=== PATIENT | male | born 1955 | race Caucasian/White ===

== ENCOUNTER 2019-06-01 10:28 | Inpatient (IN) ==
[2019-06-01] MEDS ORDERED: NS 1,000 ML IV ONE ×2 (11:26→13:33)
[2019-06-01 11:27] LABS: INR 0.99; PROTIME 13.2 Seconds (11.0-16.0)
[2019-06-01 11:28] LABS: PTT 25.3 Seconds (22.3-41.8)
[2019-06-01 11:32] LABS: AGAP 18; ALB/GLOB RATIO 1.6; ALBUMIN 4.5 g/dL (3.5-5.0); ALKALINE PHOSPHATASE 135 U/L (32-122); BUN 11 mg/dL (8-22); CALCIUM 9.8 mg/dL (8.8-10.2); CHLORIDE 98 mmol/L (98-107); CK PROFILE 81 U/L (24-204); COSMO 285; CREATININE 0.9 mg/dL (0.7-1.2); ESTIMATED GFR > 60; GLUCOSE 245 mg/dL (70-104); GOT 88 U/L (10-34); GPT 84 U/L (10-44); MAGNESIUM 1.4 mg/dL (1.5-2.7); POTASSIUM 4.4 mmol/L (3.5-5.1); SODIUM 139 mmol/L (136-145); TCO2 23 mmol/L (25-35); TOTAL BILIRUBIN 0.62 mg/dL (0.20-1.00); TOTAL PROTEIN 7.3 g/dL (6.3-8.3)
[2019-06-01] MEDS ORDERED: MORPHINE IV ONE (11:38)
[2019-06-01] MEDS ORDERED: ZOFRAN IV ONE (11:38)
--- NOTE | 2019-06-01 11:53 | Diag Imaging Result Doc PS360 ---
EXAM: CHEST-1 VIEW HISTORY: Sepsis protocol TECHNIQUE: Chest single view COMPARISON: 11/24/2014 FINDINGS: The lungs are well expanded. The heart is not enlarged. The vessels are mildly distended. There are no infiltrates. No effusion identified. IMPRESSION: Mild pulmonary edema. No pneumonia. Electronically signed by Maldonado Otoole 06/01/2019 11:51 AM
[2019-06-01 12:00] LABS: BASO# 0.05 X1000 (0.0-0.2); BASO% 0.3 % (0.0-0.8); EOS# 0.13 X1000 (0.0-0.7); EOS% 0.8 % (0.0-10.0); HEMATOCRIT 54.3 % (42.0-52.0); HEMOGLOBIN 18.5 g/dL (14.0-18.0); IMM GRAN# 0.06 X1000 (0.0-0.04); IMM GRAN% 0.4 % (0.0-0.5); LYMPH# 2.61 X1000 (1.2-3.4); LYMPH% 16.7 % (20.5-51.1); MCH 29.8 PG (27-31); MCHC 34.1 g/dL (33-37); MCV 87.6 FL (81-99); MONO# 1.15 X1000 (0.11-0.59); MONO% 7.3 % (1.7-9.3); MPV 11.6 FL (7.4-10.4); NEUT# 11.66 X1000 (1.4-6.5); NEUT% 74.5 % (42.2-75.2); PLT 227 X1000 (130-400); RDW 13.9 % (11.5-14.5); WBC 15.66 X1000 (4.8-10.8)
[2019-06-01 12:24] LABS: AMYLASE 54 U/L (20-200); LIPASE 429 U/L (13-60)
--- NOTE | 2019-06-01 13:14 | Diag Imaging Result Doc PS360 ---
EXAM: CT ABD/PELVIS W/IV CONT ONLY HISTORY: abd pain TECHNIQUE: CT abdomen and pelvis with intravenous contrast COMPARISON: 11/17/2012 FINDINGS: There are mild inflammatory changes about the pancreas. No pancreatic calcifications or pseudocyst. The gallbladder has been removed. Pronounced fatty infiltration of the liver. Normal spleen, adrenal glands, and right kidney. Tiny left renal stone. No hydronephrosis. Tiny scattered renal cysts. Prominent atherosclerosis. No aortic aneurysm. Normal appendix. No abscess. No bowel obstruction. The urinary bladder is only mildly distended. Normal prostate. IMPRESSION: 1.Acute pancreatitis 2.Prominent fatty infiltration of the liver 3.Cholecystectomy 4.Nonobstructing left renal stone. This exam was performed using automated exposure control, adjustment of mA or kV according to patient size, and/or use of iterative reconstruction technique. Electronically signed by Maldonado Otoole 06/01/2019 1:12 PM
[2019-06-01] MEDS ORDERED: MAGNESIUM SULFATE 2 GM/S.W.I. 2 GM/50 ML IVPB IV ONE (13:49)
--- NOTE | 2019-06-01 13:51 | PROVIDER DOCUMENTATION ---
This chart was entered by Amaya Schmitz Scribe, acting as scribe for Dominick Melgar CRNP. HPI-Abdominal Pain/GI Problem - General Chief Complaint: Abdominal Pain Stated Complaint: ABD PAIN X 3 DAYS Time Seen by Provider: 06/01/19 10:43 Source: patient, family Allergies/Adverse Reactions: Patient Allergies Allergy/AdvReac Type Severity Reaction Status Date / Time No Known Allergies Allergy Verified 06/01/19 11:02 Home Medications: Home Medication List Medication Instructions Recorded Confirmed Last Taken Type Home Meds Unobtainable 12/01/14 06/01/19 Unknown History - History of Present Illness-ABD Nature of Presenting Problems: 64 yom presents to the ed with c/o abdominal pain in mid epigastric area. pt has hx of pancreatitis and admits to drinking pint of burbon weekly. pt denies n/v/d and c/o only of pain. Abdominal Pain Onset Location: reports: epigastric Pain Radiation: reports: no radiation Quality of Pain: reports: cramping Severity in ED: reports: moderate Onset/Duration: reports: 2 days ago Timing: reports: still present, getting worse Activities at Onset: reports: light activity Exposure to sick contacts?: No Modifying Factors: improves with: nothing Associated Symptoms: denies: back/neck pain, diarrhea, fever/chills, headaches, nausea, shortness of breath, vomiting Last BM: last night Dark Stools Present?: reports: none noticed Rectal Bleeding: reports: none # of Diarrhea Episodes: 0 Rectal Pain: reports: none # of Vomiting Episodes: 0 Emesis Description: reports: none Bruising or Bleeding Gums?: No Similar Symptoms Previously?: Yes (hx of pancreatitis) Recently seen or treated by another doctor?: No Review of Systems - Adult - REVIEW OF SYSTEMS - ADULT Constitutional: denies: chills, fever Eyes: reports: no symptoms reported Ears, Nose, Mouth & Throat: reports: no symptoms reported Cardiovascular: denies: chest pain, palpitations Respiratory: denies: shortness of breath, wheezing Gastrointestinal: reports: see HPI, abdominal pain (mid epigastric). denies: d iarrhea, nausea, vomiting Genitourinary: reports: no symptoms reported Musculoskeletal: denies: back pain, neck pain Integumentary: reports: no symptoms reported Neurological: reports: no symptoms reported Psychiatric: reports: see HPI, alcohol/drug dependence (etoh) Endocrine: reports: no symptoms reported Hematologic/Lymphatic: reports: no symptoms reported Allergic/Immunologic: reports: no symptoms reported All Other Systems: Reviewed and Negative Past History - Adult - PAST MEDICAL HISTORY-ADULT Review of Records: reports: Old Records Reviewed, Nursing Assessment Review, Medications Reviewed, Social history reviewed & non-contributory. Major Childhood Illnesses: reports: denies history Cardiovascular: reports: CAD, HTN, hyperlipidemia, [place] Respiratory: reports: denies history Gastrointestinal: reports: cancer (liver), GERD, liver disease, pancreatitis Genitourinary: reports: denies history Musculoskeletal: reports: denies history Neurological: reports: Seizures/Epilepsy Psychiatric: reports: anxiety, bipolar, depression, suicide attempt Endocrine/Immune: reports: denies history Other Conditions: reports: denies history - PRIOR SURGERIES/PROCEDURES Surgical/Procedure History: reports: cardiac stent, tonsillectomy - IMMUNIZATION STATUS Childhood Immunizations: See Nurse Assessment Flu Vaccine: See Nurse Assessment - FAMILY HISTORY Family History: reviewed, not pertinent - SOCIAL HISTORY Smoking: cigarettes, greater than 1 pack/day Provider spent 3-5 mins advising pt. on dangers of tobacco.: Discussed manners to quit use, and f/u contacts for add'l counseling. Substance Use: alcohol Alcohol Use Frequency: once a week (pint of eliud weekly) Living Situation: family Physical Exam-General - PHYSICAL EXAM-ADULT Initial Vital Signs Reviewed: Yes (noted BP 199/101 RR 28 o@ 94%) - CONSTITUTIONAL General Appearance: alert, mild distress - EYES Eyes: PERRL/EOMI, pink conjunctivae - HEAD, EARS, NOSE, MOUTH & THROAT HENMT: moist mucous membranes - NECK Neck: non-tender, full range of motion, normal inspection - RESPIRATORY Respiratory: chest non-tender, lungs clear, normal breath sounds, increased rate (28) - CARDIOVASCULAR Cardiovascular: normal peripheral pulses, tachycardia (100) - GASTROINTESTINAL (ABDOMEN) Abdominal Exam: normal bowel sounds, soft, tenderness (mid epigastric) - LYMPHATIC Lymphatic: no adenopathy - MUSCULOSKELETAL Back Exam: normal inspection, no CVA tenderness, no vertebral tenderness Extremity: normal range of motion, non-tender, normal inspection, normal capillary refill, pelvis stable - SKIN Integumentary: normal color, normal turgor, warm/dry - NEUROLOGIC Neurologic: grossly normal - PSYCHIATRIC Psych/Mental Status: normal mood/affect, normal thought content, normal thought process, oriented x 3 Progress - PLAN OF CARE/RESULTS Progress/Plan/Lab Results: Vital Signs - 8 hr 06/01/19 11:00 Temperature 98.0 F Pulse Rate 100 H Respiratory Rate 28 H Blood Pressure 199/101 O2 Sat by Pulse Oximetry 94 L Laboratory Results - last 24 hr 06/01/19 06/01/19 06/01/19 10:52 10:52 10:52 PT 13.2 INR 0.99 PTT (Actin FS) 25.3 Sodium 139 Potassium 4.4 Chloride 98 Carbon Dioxide 23 L Anion Gap 18 BUN 11 Creatinine 0.9 Estimated GFR/1.73 m2 > 60 BUN/Creatinine Ratio 12 Glucose 245 H Calculated Osmolality 285 Calcium 9.8 Magnesium 1.4 L Total Bilirubin 0.62 AST 88 H ALT 84 H Alkaline Phosphatase 135 H Creatine Kinase 81 Troponin T Total Protein 7.3 Albumin 4.5 Globulin 2.8 Albumin/Globulin Ratio 1.6 Plasma Lactate 1.6 06/01/19 10:52 PT INR PTT (Actin FS) Sodium Potassium Chloride Carbon Dioxide Anion Gap BUN Creatinine Estimated GFR/1.73 m2 BUN/Creatinine Ratio Glucose Calculated Osmolality Calcium Magnesium Total Bilirubin AST ALT Alkaline Phosphatase Creatine Kinase Troponin T < 0.010 Total Protein Albumin Globulin Albumin/Globulin Ratio Plasma Lactate Orders Category Date Time Status Cardiac Monitoring DIRECTED Care 06/01/19 11:03 Active IV Insertion ORDERED Care 06/01/19 11:03 Active Notify MD of + Sepsis Screen NOW Care 06/01/19 11:03 Active Notify Physician As Ordered Care 06/01/19 11:03 Active CHEST-1 VIEW [RAD] Stat Exams 06/01/19 11:[address] ABD/PELVIS W/IV CONT ONLY [CT] Stat Exams 06/01/19 11:26 Ordered AMYLASE [CHEM] Stat Lab 06/01/19 10:52 Received BLOOD CULTURE [BLDCUL] Stat Lab 06/01/19 11:03 Uncollected CBC WITH DIFF [HEME] Stat Lab 06/01/19 10:52 Results CK PROFILE [SP CHEM] Stat Lab 06/01/19 10:52 Completed COMPREHENSIVE METABOLIC PANEL [CHEM] Stat Lab 06/01/19 10:52 Completed LACTATE, PLASMA [CHEM] Lab 06/01/19 14:15 Uncollected LACTATE, PLASMA [CHEM] Lab 06/01/19 17:15 Uncollected LACTATE, PLASMA [CHEM] Q3H Lab 06/01/19 10:52 Completed LIPASE [CHEM] Stat Lab 06/01/19 10:52 Received MAGNESIUM [CHEM] Stat Lab 06/01/19 10:52 Completed PROTIME WITH INR [COAG] Stat Lab 06/01/19 10:52 Completed PTT [COAG] Stat Lab 06/01/19 10:52 Completed TROPONIN T Stat Lab 06/01/19 10:52 Completed URINALYSIS W/POSS RFLX CULT [URINALYSIS] Stat Lab 06/01/19 11:03 Uncollected 0.9% Sodium Chloride Inj [Ns] 1,000 ml Med 06/01/19 11:26 Active IV 999 mls/hr Morphine Med 06/01/19 11:38 Discontinued 4 mg IV NOW ONE Ondansetron [Zofran] Med 06/01/19 11:38 Discontinued 4 mg IV NOW ONE Oxygen Device Stat Oth 06/01/19 11:03 Active Result Diagrams: 06/01/19 10:52 06/01/19 10:52 - XRAY 1 XRAY: Bilateral XRAY Study: Chest Impression: See EMR Report (EXAM: CHEST-1 VIEW HISTORY: Sepsis protocol TECHNIQUE: Chest single view COMPARISON: 11/24/2014 FINDINGS: The lungs are well expanded. The heart is not enlarged. The vessels are mildly distended. There are no infiltrates. No effusion identified. IMPRESSION: Mild pulmonary edema. No pneumonia. Electronically signed by Maldonado Otoole 06/01/2019 11:51 AM 06/01/19 1151 Interpreting Physician: Maldonado Otoole MD ictated Date/Time: 06/01/19 1150 cc: Dominick Melgar; Delvis Davison MD) - CT/MRI 1 CT Study: Abdomen, Pelvis Impression: See EMR Report (EXAM: CT ABD/PELVIS W/IV CONT ONLY HISTORY: abd pain TECHNIQUE: CT abdomen and pelvis with intravenous contrast COMPARISON: 11/17/2012 FINDINGS: There are mild inflammatory changes about the pancreas. No pancreatic calcifications or pseudocyst. The gallbladder has been removed. Pronounced fatty infiltration of the liver. Normal spleen, adrenal glands, and right kidney. Tiny left renal stone. No hydronephrosis. Tiny scattered renal cysts. Prominent atherosclerosis. No aortic aneurysm. Normal appendix. No abscess. No bowel obstruction. The urinary bladder is only mildly distended. Normal prostate. IMPRESSION: 1.Acute pancreatitis 2.Prominent fatty infiltration of the liver 3.Cholecystectomy 4.Nonobstructing left renal stone. This exam was performed using automated exposure control, adjustment of mA or kV according to patient size, and/or use of iterative reconstruction technique. Electronically signed by Maldonado Otoole 06/01/2019 1:12 PM 06/01/19 1312 Interpreting Physician: Maldonado Otoole MD Dictated Date/Time: 06/01/19 1309 cc: Dominick Melgar; Delvis Davison MD) - CONSULTS/PCP/HOSPITALIST Notification #1 *Consult/PCP/Hospitalist*: [facility]/Dr. Bishop Time Discussed: 13:50 Consult Disposition: Admit Departure - Departure Date of Disposition Decision: 06/01/19 Time of Disposition Decision: 13:37 DIAGNOSIS: Pancreatitis, acute Qualifiers: Pancreatitis type: unspecified pancreatitis type Acute pancreatitis complication: unspecified Qualified Code(s): K85.90 - Acute pancreatitis without necrosis or infection, unspecified Disposition: ADMITTED INPATIENT 09 Certified Medical Emergency: Emergent Condition: Stable Additional Freetext Instructions: ED Follow Up Instructions: You have been treated by a care provider in the Emergency Department. These instructions are being provided to you so you can have an understanding of how to care for yourself upon discharge. Upon discharge from the Emergency De partment, you are responsible for making arrangements for follow-up care by a physician of your choice. Take all prescribed medications as directed. Return to the Emergency Department immediately for any new or worsening symptoms. You may call the Physician Referral phone number at [phone] to obtain a list of Physicians who are taking new patients. ED Follow Up Instructions: You have been treated by a care provider in the Emergency Department. These instructions are being provided to you so you can have an understanding of how to care for yourself upon discharge. Upon discharge from the Emergency Department, you are responsible for making arrangements for follow-up care by a physician of your choice. Take all prescribed medications as directed. Return to the Emergency Department immediately for any new or worsening symptoms. You may call the Physician Referral phone number at [phone] to obtain a list of Physicians who are taking new patients. Referrals and Follow-Ups: Delvis Davison MD [Primary Care Provider] - - Critical Care Note This patient required my direct & personal management of CC.: No Attestation - Physician/ MAKENZIE Attestation Patient care was provided by Advanced Practice Provider:: Yes Advanced Practice Provider:: Dominick Melgar Advanced Practice Provider documentation review:: The Mid-level provider documentation, treatment plan and medical decision making was reviewed by the physician who agrees with all treatment and medical decision making by the MLP. The physician spent face to face time with patient:: No Advanced Practice Provider documentation review:: Supervising physician onsite and consulted in the evaluation and care of this patient. The physician did not have a face to face encounter with the patient. This chart was documented by the indicated scribe, (Amaya Schmitz Scribe) and accurately reflects the services I performed and decisions made by me, Dominick Melgar CRNP, as attested by the provider's signature.
[2019-06-01] MEDS ORDERED: SODIUM CHLORIDE 0.9% INJ SCH (14:57)
[2019-06-01] MEDS ORDERED: NEXIUM IV SCH (14:57)
--- NOTE | 2019-06-01 15:16 | HISTORY AND PHYSICAL ---
PRIMARY CARE PHYSICIAN: Dr. Delvis Davison. CHIEF COMPLAINT: Midepigastric abdominal pain for the past 2 to 3 days and he vomited x1 today. HISTORY OF PRESENTING ILLNESS: This is a 64-year-old male who presents to [facility] with complaints of midepigastric abdominal pain over the last 2 to 3 days that has progressively worsened. Vomited x1 today. Drinks 1/2 to 1 pint of liquor daily and has for some time. Has a history of pancreatitis in the past. His workup in the emergency room showed an AST of 88, ALT 84, alkaline phosphatase 135. Amylase was 54, lipase 429 with a plasma lactate of 1.6, magnesium 1.4. Hemoglobin was 18.5 with a hematocrit of 54.3. We did a CT of the abdomen and pelvis that showed an acute pancreatitis and a prominent fatty infiltration of the liver. So he will be admitted for further evaluation and treatment. He is noted to be very lethargic. Does moan with palpation to the midepigastric of his abdomen. Was given morphine 4 mg IV x1 in the emergency room, so he is lethargic at this time. is at bedside to help answer questions and review medical record. PAST MEDICAL HISTORY: Coronary artery disease, diabetes type 2, bipolar, pancreatitis, ETOH abuse, and hepatitis C. PAST SURGICAL HISTORY: Heart stent placement, epidural for back pain, and a cholecystectomy. FAMILY HISTORY: Reviewed and noncontributory. SOCIAL HISTORY: He currently lives with his . Smokes a pack of cigarettes a day. Drinks 1/2 to 1 pint of liquor daily. Denied any illicit drug use. ALLERGIES: He has no known drug allergies. HOME MEDICATIONS: There are none listed at this time. LABORATORY DATA: Showed a white blood cell count of 15.66, hemoglobin 18.5, hematocrit 54.3, platelets 227,000. PT and INR of 13.2 and 0.99. Sodium 139, potassium 4.4, chloride 98, CO2 23, BUN of 11, creatinine 0.9, glucose 245, magnesium of 1.4, AST of 88, ALT 84, alkaline phosphatase 135. Cardiac enzyme was negative. Amylase 54, lipase 429, plasma lactate 1.6. Chest x-ray showed mild pulmonary edema but no pneumonia. Abdomen and pelvis CT showed an acute pancreatitis, prominent fatty infiltration of the liver, cholecystectomy, and nonobstructing left renal stone. REVIEW OF SYSTEMS: Denies any fever, chills, blurred vision, dizziness, chest pain, coughing, shortness of breath. He had midepigastric abdominal pain, nausea, vomiting x1. He denied any constipation or diarrhea. No burning or hurting with urination. PHYSICAL EXAMINATION: VITAL SIGNS: On arrival he had a temperature of 98 degrees, pulse 100, respirations 28, blood pressure was 199/101, saturating 94% on room air. GENERAL: This is a 64-year-old male who is lying in the bed, unable to answer questions due to lethargy from receiving some pain medication. I spoke with who is at the bedside and reviewed his chart. HEENT: Normocephalic, atraumatic. Normal ENT inspection. Oropharynx and nares are clear. NECK: Normal inspection. Normal range of motion. LUNGS: Clear to auscultation bilaterally with equal lung expansion and chest wall movement. HEART: With regular rate and rhythm. No murmurs, rubs, or gallops. ABDOMEN: Soft. Tender to palpation to the midepigastric area. Bowel sounds are present x4 quadrants. MUSCULOSKELETAL: Unable to assess strength at this time due to his lethargy from receiving pain medication. NEUROLOGICAL: The cranial nerves 2-12 appear grossly intact. ASSESSMENT: 1. Acute pancreatitis. 2. Dehydration. 3. Leukocytosis. 4. Hypomagnesemia. 5. Elevated liver function tests. 6. Ethanol abuse. 7. Tobacco abuse our. PLAN: He will be admitted to the medical unit, placed on telemetry, n.p.o. We will check thiamine, ferritin, and folate today. Place on a banana bag 1 daily, normal saline at 125 mL an hour, Ativan 1 mg IV q.4 hours p.r.n. for alcohol withdrawal. We will give him morphine 4 mg IV q.4 hours for pain. He received magnesium sulfate 2 g IV in the emergency room. We will recheck a CBC, BMP, and a magnesium level in the a.m. Place him on SCDs for DVT prophylaxis and Nexium 40 mg IV q.24. Further orders after seen by attending. Dictated by NUVIA Chu for Jeromy Bishop MD cc: NUVIA Chu MD
[2019-06-01] MEDS: APRESOLINE IV PRN (16:00)
[2019-06-01] MEDS: MORPHINE IV PRN (17:08)
[2019-06-01 17:48] LABS: URINE SOURCE CLEAN CATCH
[2019-06-01 17:53] LABS: BILIRUBIN URINE NEGATIVE (NEGATIVE); BLOOD URINE NEGATIVE (NEGATIVE); COLOR YELLOW; GLUCOSE URINE >1000 mg/dL (NEGATIVE); KETONE URINE 40 mg/dL (NEGATIVE); LEUKOCYTES URINE NEGATIVE (NEGATIVE); NITRITE URINE NEGATIVE (NEGATIVE); PH URINE 6.5; PROTEIN URINE 200 mg/dL (NEGATIVE); SP GRAVITY URINE 1.035; TURBIDITY URINE CLEAR (CLEAR); UROBILINOGEN URINE 2 mg/dL (NORMAL)
[2019-06-01 17:54] LABS: UR EPITHELIAL CELLS <10 /HPF (<10); URINE BACTERIA NEGATIVE /HPF; URINE RBC <10 /HPF (<10); URINE WBC <10 /HPF (<10)
[2019-06-01] MEDS: NS 1,000 ML IV SCH ×2 (18:38→23:28)
[2019-06-01] MEDS: PROTONIX IV SCH (18:39)
[2019-06-01] MEDS: ATIVAN IV PRN (18:39)
[2019-06-01] MEDS: SODIUM CHLORIDE 0.9% INJ SCH (18:39)
[2019-06-02] MEDS: ZOFRAN IV PRN ×2 (00:03→19:23)
[2019-06-02] MEDS: ATIVAN IV PRN ×3 (00:03→19:23)
[2019-06-02] MEDS: MORPHINE IV PRN ×3 (00:03→16:06)
[2019-06-02] MEDS: NS 1,000 ML IV SCH ×3 (06:33→22:52)
[2019-06-02] MEDS: APRESOLINE IV PRN (06:33)
[2019-06-02 07:22] LABS: BASO# 0.03 X1000 (0.0-0.2); BASO% 0.2 % (0.0-0.8); EOS# 0.06 X1000 (0.0-0.7); EOS% 0.3 % (0.0-10.0); HEMATOCRIT 55.2 % (42.0-52.0); HEMOGLOBIN 18.4 g/dL (14.0-18.0); IMM GRAN# 0.05 X1000 (0.0-0.04); IMM GRAN% 0.3 % (0.0-0.5); LYMPH# 1.92 X1000 (1.2-3.4); LYMPH% 10.6 % (20.5-51.1); MCH 29.6 PG (27-31); MCHC 33.3 g/dL (33-37); MCV 88.7 FL (81-99); MONO# 1.29 X1000 (0.11-0.59); MONO% 7.1 % (1.7-9.3); NEUT# 14.83 X1000 (1.4-6.5); NEUT% 81.5 % (42.2-75.2); PLT 197 X1000 (130-400); RBC 6.22 XMIL (4.7-6.1); RDW 14.1 % (11.5-14.5); WBC 18.18 X1000 (4.8-10.8)
[2019-06-02 07:24] LABS: AGAP 18; BUN 9 mg/dL (8-22); CALCIUM 8.9 mg/dL (8.8-10.2); CHLORIDE 99 mmol/L (98-107); COSMO 280; CREATININE 0.9 mg/dL (0.7-1.2); ESTIMATED GFR > 60; GLUCOSE 207 mg/dL (70-104); MAGNESIUM 1.6 mg/dL (1.5-2.7); POTASSIUM 3.8 mmol/L (3.5-5.1); SODIUM 138 mmol/L (136-145); TCO2 21 mmol/L (25-35)
[2019-06-02 08:11] LABS: HEMOGLOBIN A1C 8.7 % (4.8-6.0)
--- NOTE | 2019-06-02 14:18 | PROGRESS NOTE ---
DATE: 06/02/2019 INTERVAL HISTORY: The patient is still with some upper abdominal pain but no further nausea or vomiting. No acute events overnight. No new complaints. REVIEW OF SYSTEMS: Twelve point review of systems negative except as per interval history. LABS: WBC 18.1, hemoglobin 18.4, hematocrit 55.2, platelets 197,000. Sodium 138, potassium 3.8, bicarb 21, BUN 9, creatinine 0.9, glucose 207, hemoglobin A1c 8.7, magnesium 1.6. VITALS: T-max 98.5 degrees, pulse 101, respirations 18, blood pressure 165/89, O2 saturation 97% on room air. PHYSICAL EXAMINATION: General: No acute distress. Vitals: As above. HEENT: Normocephalic, atraumatic. Still slightly dry mucous membranes. Cardiovascular: Mildly tachycardic but regular. No murmurs noted. Pulmonary: Clear to auscultation bilaterally. No wheezing, rales, or rhonchi. Abdomen: Soft, nondistended. Mild epigastric tenderness without rebound or guarding. Extremities: Peripheral pulses intact. No clubbing or cyanosis. Neurologic: Cranial nerves grossly intact. No focal deficits identified. Psychiatric: Asleep but easily arousable. Oriented x3. Skin: No new rashes or lesions identified. ASSESSMENT AND PLAN: 1. Acute alcoholic pancreatitis. The patient is still with pain but nausea resolved. The patient is amendable to starting some clear liquids and we will see how it goes. Continue supportive care with fluids, pain and nausea control. The patient was advised on alcohol cessation. 2. Likely alcoholic hepatitis. Patient with mildly elevated liver function tests, likely due to mild alcoholic hepatitis. Recheck pending. We will monitor. 3. Leukocytosis and polycythemia, initially favored dehydration but white count actually slightly up today and hemoglobin remains elevated. Chest x-ray without evidence of pneumonia. CT of the abdomen and pelvis with pancreatitis, fatty liver but no acute infection. Urinalysis negative for leukocytes, nitrite, or white cells. Suspect leukocytosis is secondary to inflammation from his pancreatitis but uncertain about the polycythemia. We will continue aggressive hydration but if it continues tomorrow, then we may have to get hematology to see him. 4. Hypomagnesemia, improved with repletion. Monitor. 5. Diabetes. The patient is on metformin alone at home but A1c suggests poor control. Placed on sliding scale insulin and we will monitor. 6. Alcohol and tobacco abuse. The patient has been counseled on cessation. 7. Hypertension. Patient with markedly elevated blood pressure. Starting him on Norvasc 10 and will adjust further as needed.
[2019-06-02 15:54] LABS: ALLEN TEST YES; BLOOD TYPE ARTERIAL; HCO3-(ACT) 23.2 mmoll (20.0-26.0); O2(CT) 23.9 mL/dL (15.0-23.0); O2HB 93.4 % (95.0-99.0); PCO2(98.6) 33 mmHg (35-45); PO2(98.6) 72 mmHg (60-100); SAMPLE BLOOD; SAO2 96.1 % (95.0-100.0); THB 18.2 g/dL (11.5-17.4); pH(98.6) 7.42 (7.35-7.45)
[2019-06-02 15:56] LABS: MODALITY ROOM AIR
[2019-06-02] MEDS: M.V.I.-12 10 ML, FOLIC ACID 1 MG, MAGNESIUM SULFATE 1 GM, THIAMINE 100 MG in NS 1,000 ML IV SCH (16:01)
[2019-06-02] MEDS: NORVASC PO SCH (16:05)
[2019-06-02] MEDS: SODIUM CHLORIDE 0.9% INJ SCH (16:11)
[2019-06-02] MEDS: PROTONIX IV SCH (16:12)
[2019-06-02] MEDS: HUMALOG SUBQ SCH ×3 (16:16→22:52)
[2019-06-03] MEDS: ATIVAN IV PRN ×3 (04:06→20:57)
[2019-06-03] MEDS: NS 1,000 ML IV SCH ×5 (05:45→23:32)
[2019-06-03] MEDS: HUMALOG SUBQ SCH ×4 (06:45→21:00)
[2019-06-03 06:58] LABS: BASO# 0.04 X1000 (0.0-0.2); BASO% 0.3 % (0.0-0.8); EOS# 0.46 X1000 (0.0-0.7); EOS% 3.3 % (0.0-10.0); HEMATOCRIT 54.5 % (42.0-52.0); HEMOGLOBIN 17.8 g/dL (14.0-18.0); IMM GRAN# 0.07 X1000 (0.0-0.04); IMM GRAN% 0.5 % (0.0-0.5); LYMPH% 17.2 % (20.5-51.1); MCH 29.5 PG (27-31); MCHC 32.7 g/dL (33-37); MCV 90.4 FL (81-99); MONO# 1.06 X1000 (0.11-0.59); MONO% 7.6 % (1.7-9.3); MPV 11.9 FL (7.4-10.4); NEUT# 9.93 X1000 (1.4-6.5); NEUT% 71.1 % (42.2-75.2); PLT 191 X1000 (130-400); RBC 6.03 XMIL (4.7-6.1); RDW 14.2 % (11.5-14.5); WBC 13.96 X1000 (4.8-10.8)
[2019-06-03 07:24] LABS: AGAP 15; ALB/GLOB RATIO 1.1; ALBUMIN 3.6 g/dL (3.5-5.0); ALKALINE PHOSPHATASE 135 U/L (32-122); BUN 8 mg/dL (8-22); CALCIUM 8.5 mg/dL (8.8-10.2); CHLORIDE 100 mmol/L (98-107); COSMO 277; CREATININE 0.8 mg/dL (0.7-1.2); ESTIMATED GFR > 60; GLUCOSE 145 mg/dL (70-104); GOT 23 U/L (10-34); GPT 40 U/L (10-44); POTASSIUM 3.6 mmol/L (3.5-5.1); SODIUM 138 mmol/L (136-145); TCO2 23 mmol/L (25-35); TOTAL BILIRUBIN 0.52 mg/dL (0.20-1.00)
[2019-06-03] MEDS: M.V.I.-12 10 ML, FOLIC ACID 1 MG, MAGNESIUM SULFATE 1 GM, THIAMINE 100 MG in NS 1,000 ML IV SCH (08:33)
[2019-06-03] MEDS: NORVASC PO SCH (08:34)
[2019-06-03] MEDS: NICODERM PATCH TD SCH (08:34)
[2019-06-03] MEDS: COREG PO SCH ×2 (09:33→20:53)
[2019-06-03] MEDS: NEXIUM PO SCH (09:33)
[2019-06-03] MEDS: MORPHINE IV PRN ×2 (09:33→15:05)
[2019-06-03] MEDS: FLOMAX PO SCH (10:06)
--- NOTE | 2019-06-03 10:22 | PROGRESS NOTE ---
DATE: 06/03/2019 SUBJECTIVE: The patient seems to be feeling better. He is still complaining of some pain. He has been tolerating a clear liquid diet, and I will advance it to a full liquid diet, and I will put him back on some of his medications. His blood pressure has been really elevated in the 180s and 200s but has been decreasing now. He has been tachycardic but now seems to be better as well. I have placed this patient back on some of his home medications. I will continue to monitor the patient closely. I will stop the banana bag and put him on multivitamins p.o. No signs of withdrawal. OBJECTIVE: Vital signs: Temperature 97.5, pulse 78, respiratory rate 16, blood pressure 118/76. Oxygen saturation 97% on room air. HEENT: Head is normocephalic and atraumatic. PERRLA. Neck: Supple. No JVD. No masses. Central trachea. Chest: Clear to auscultation. No wheezing, no rales. Abdomen: Soft. Some tenderness to palpation at the periumbilical area. Extremities with no edema, no clubbing, no cyanosis. Neurologic: The patient is alert and oriented x3. No focal deficit. DIAGNOSTIC DATA: WBC is 13.9, hemoglobin 17.8, hematocrit 54.5, platelets 191. Sodium is 138, potassium 3.6, chloride 100, bicarbonate 23, BUN is 8, creatinine 0.8, glucose 145, calcium 8.5. AST is 23, ALT is 40, alkaline phosphatase 135. ASSESSMENT AND PLAN: 1. Acute alcoholic pancreatitis. He seems to be getting better. I will advance the diet from clear liquid diet to full liquid diet. Continue with pain medication and nausea control. 2. Likely alcoholic hepatitis in a patient with a history of hepatitic C which was treated, aware. 3. Leukocytosis and polycythemia. Probably because he was dehydrated, but he has been seen by Dr. Garland as an outpatient, and they were looking at the cause of his leukocytosis. No sign of infection right now. 4. Hypomagnesemia, resolved. I will check it in the morning again. 5. Type 2 diabetes with a hemoglobin A1c of 8.7. He is only on metformin at home just once a day. I will increase it to twice a day upon discharge probably. 6. Alcohol and tobacco abuse. This patient has been highly advised against tobacco use. I will continue with daily cessation education. 7. Hypertension. It has been markedly elevated but is getting better now. He was started on Norvasc 10, and I will put this patient back on his home medications. 8. Bipolar disorder. Continue with home medications. cc: Aram Amos MD
[2019-06-03] MEDS: PROTONIX IV SCH (17:41)
[2019-06-03] MEDS: SODIUM CHLORIDE 0.9% INJ SCH (17:41)
[2019-06-03] MEDS: DILAUDID IV PRN ×2 (19:40→23:32)
[2019-06-03] MEDS: TRILEPTAL PO SCH (20:53)
[2019-06-04] MEDS: HUMALOG SUBQ SCH (07:01)
[2019-06-04] MEDS: NEXIUM PO SCH (07:07)
[2019-06-04 07:12] LABS: BASO# 0.06 X1000 (0.0-0.2); BASO% 0.5 % (0.0-0.8); EOS# 0.62 X1000 (0.0-0.7); EOS% 5.3 % (0.0-10.0); HEMATOCRIT 50.8 % (42.0-52.0); HEMOGLOBIN 16.3 g/dL (14.0-18.0); IMM GRAN# 0.08 X1000 (0.0-0.04); IMM GRAN% 0.7 % (0.0-0.5); LYMPH# 2.73 X1000 (1.2-3.4); LYMPH% 23.4 % (20.5-51.1); MCH 29.2 PG (27-31); MCHC 32.1 g/dL (33-37); MONO# 1.22 X1000 (0.11-0.59); MONO% 10.5 % (1.7-9.3); NEUT# 6.94 X1000 (1.4-6.5); NEUT% 59.6 % (42.2-75.2); PLT 186 X1000 (130-400); RBC 5.58 XMIL (4.7-6.1); RDW 14.1 % (11.5-14.5); WBC 11.65 X1000 (4.8-10.8)
[2019-06-04 07:30] VITALS: BP 153/79
[2019-06-04 07:37] LABS: AGAP 14; ALB/GLOB RATIO 1.2; ALBUMIN 3.6 g/dL (3.5-5.0); ALKALINE PHOSPHATASE 131 U/L (32-122); BUN 7 mg/dL (8-22); CALCIUM 8.5 mg/dL (8.8-10.2); CHLORIDE 104 mmol/L (98-107); COSMO 277; CREATININE 0.9 mg/dL (0.7-1.2); ESTIMATED GFR > 60; GLUCOSE 126 mg/dL (70-104); GOT 29 U/L (10-34); GPT 33 U/L (10-44); POTASSIUM 3.7 mmol/L (3.5-5.1); SODIUM 139 mmol/L (136-145); TCO2 21 mmol/L (25-35); TOTAL BILIRUBIN 0.54 mg/dL (0.20-1.00); TOTAL PROTEIN 6.6 g/dL (6.3-8.3)
[2019-06-04] MEDS: DILAUDID IV PRN (08:28)
[2019-06-04] MEDS: NORVASC PO SCH (08:29)
[2019-06-04] MEDS: TRILEPTAL PO SCH (08:29)
[2019-06-04] MEDS: FLOMAX PO SCH (08:29)
[2019-06-04] MEDS: COREG PO SCH (08:29)
[2019-06-04] MEDS: NICODERM PATCH TD SCH (08:30)
[2019-06-04] MEDS ORDERED: FOLIC ACID PO SCH (09:00)
[2019-06-04] MEDS ORDERED: VITAMIN B-1 PO SCH (09:00)
[2019-06-04] MEDS ORDERED: FLINTSTONES COMPLETE PO SCH (09:00)
--- NOTE | 2019-06-05 14:43 | DISCHARGE SUMMARY ---
ADMISSION DATE: 06/01/2019 DISCHARGE DATE: 06/04/2019 DISCHARGE DIAGNOSES: 1. Acute alcoholic pancreatitis, recurrent. 2. Likely alcoholic hepatitis. 3. Leukocytosis and polycythemia, better. 4. Hypomagnesemia, resolved. 5. Type 2 diabetes with a hemoglobin A1c of 8.7. 6. Alcohol abuse. 7. Tobacco abuse. 8. Hypertension. 9. Bipolar disorder. PROCEDURES PERFORMED: Chest x-ray dated 06/01/2019, impression: Mild pulmonary edema. No pneumonia. Abdomen and pelvis CT scan dated 06/01/2019, impression: Acute pancreatitis, prominent fatty infiltration of the liver, cholecystectomy, and nonobstructing non obstructing left renal stone. HOSPITAL COURSE: A 64-year-old male with multiple comorbidities including coronary artery disease, type 2 diabetes, bipolar disorder, previous pancreatitis, alcohol abuse, tobacco abuse, hepatitis C, presented to [facility] complaining of mid epigastric abdominal pain over the last 2 to 3 days that has been getting worse, associated with vomiting, it looks like he drinks have 1/2 to 1 pint of liquor daily and has been doing this for some time. He has a history of pancreatitis in the past, at the emergency department lab work showed elevated liver function tests. Lipase level was 429 and amylase 54, magnesium was low at 1.4, hemoglobin 18.5, hematocrit 54.3. CT scan of the abdomen and pelvis showed acute pancreatitis, prominent fatty infiltration of the liver, he was noted to be very lethargic. He does moan with palpation to the mid epigastric area of his abdomen. He was given morphine, his was at the bedside answering all the questions. He was placed on the medical floor with IV fluids and pain medication. Nothing per mouth, then he started getting better, but he was asking constantly for pain medication, and the patient states that morphine did not help his pain and he was demanding to be placed on Dilaudid, so morphine 4 mg q. 4 hours was stopped and I put this patient on Dilaudid 1 mg every 3 hours as needed. He was started on a liquid diet, but he was still having a lot of pain and he was asking for medications so the diet was stopped. We will continue with the IV fluids and pain medication. Today in the morning, when I was about to re- evaluate this patient, he wanted to go home because he wanted to he want he wanted to eat, I explained to him that the pancreas should rest and the only way to do that is without food, only fluids through the vein and pain medication. He seems to understand but he has decided to leave AMA anyway. cc: Aram Amos MD
== END 2019-06-04 10:46 | disposition home or self-care (01) | DRG 440 ==
LOC: SUPCPDRO → ED 10:28 → SUATTDRO 14:31 → 4N 14:31
PROVIDERS: ATTEND Internal Medicine